=== PATIENT | male | born 1990 | race Caucasian/White ===

== ENCOUNTER 2019-06-21 00:05 | Emergency (ER) | payer SELFPAY ==
[~2019-06-21] VITALS: Ht 170.2 cm; Wt 81.6 kg
--- NOTE | 2019-06-21 00:20 | NUR ---
ED Nurse Note: Pt walked into ED c/o seizure today at 2330, witnessed by his for 3 mins. Stated that he passed out for couple of minutes. No SOB. Not in any distress. As per pt, he is on seizure meds but is non compliant. VSS. at bedside.
--- NOTE | 2019-06-21 00:20 | NUR ---
Note audi in EDM - 06/21/19 at 0026 by VICKY ED Nurse Note: Pt walked into ED c/o seizure today at 2330, witnessed by his for 3 mins. Denies LOC. No SOB. Not in any distress. As per pt, he is on seizure meds but is non compliant. VSS. at bedside.
[2019-06-21 00:22] VITALS: BP 138/80
[2019-06-21] MEDS ORDERED: GABAPENTIN300 MG ORAL (00:22)
[2019-06-21] MEDS ORDERED: TRAZODONE HCL150 MG ORAL (00:22)
[2019-06-21] MEDS ORDERED: ROBAXIN-500MG ORAL (00:22)
[2019-06-21] MEDS ORDERED: QUETIAPINE FUMA25 MG ORAL (00:22)
[2019-06-21] MEDS ORDERED: KEPPRA500 M4 ORAL (00:22)
--- NOTE | 2019-06-21 00:25 | NUR ---
ED Nurse Note: ERMD at bedside.
[2019-06-21] MEDS ORDERED: levETIRAcetam 1,000mg/NS100ml 100 ML IVPB ONE (00:30)
--- NOTE | 2019-06-21 00:30 | Emergency Room Report ---
History of Present Illness General Chief Complaint: Seizure Source: Patient Present Illness HPI Disclaimer: Please note that this report is being documented using DRAGON technology. This can lead to erroneous entry secondary to incorrect interpretation by the dictating instrument. HPI: 28-year-old male presents for evaluation after a seizure. Has a history of seizure disorder and is prescribed Keppra. He recently arrived from [place] and is in a drug rehabilitation program for opiate abuse. Proximally 1 hour ago he had a witnessed 3 to 5-minute period of seizure-like activity. His seizures are usually generalized tonic-clonic seizures however his witnessed him rigid and stiff for approximately 3 minutes. He was not responding to verbal or physical stimuli. The patient has no recollection of these events. Denies urinary incontinence, tongue biting, head injury. Reportedly he was postictal for 2 to 3 minutes and then returned to baseline. He arrives alert and oriented without complaints. Denies headache, vision changes, nausea, vomiting, chest pain, shortness of breath, diarrhea. He has been without his Keppra for 2 days. Last seizure was May 29. PMH: Seizure disorder, opiate abuse PSH: Denies Allergies: Denies Social Hx: Opiate abuse in remission, in a Suboxone program Allergies: Coded Allergies: No Known Allergies (Unverified , 06/21/19) Nursing Documentation-PMH Past Medical History: No History, Except For History Of Psychiatric Problem: Yes - SUBSTANCE ABUSE Hx Seizures: Yes Review of Systems All Other Systems: negative except mentioned in HPI Physical Exam Vital Signs Date Time Temp Pulse Resp B/P (MAP) Pulse Ox O2 Delivery O2 Flow Rate FiO2 06/21/19 00:12 98.1 88 14 138/80 (99) 98 Room Air General: Awake and alert, no acute distress HEENT: NC/AT. EOMI. PERRLA. Visual saha are full. No nystagmus. Facial expressions are symmetrical. No facial droop. Cardiovascular: RRR. S1 and S2 normal. No murmur appreciated Resp: Normal work of breathing. No cough, wheezing or crackles appreciated Abdomen: Abdomen is soft, nondistended. Nontender Skin: Intact. No abrasions, laceration or rash over the exposed skin MSK: Normal tone and bulk. Moving all extremities. No obvious deformity. There is no drift in the upper or lower extremities bilaterally. Neuro: Awake and alert. Mentating appropriately. Facial expression symmetrical. No dysarthria, no ataxia. Sensation to light touch is intact over the upper and lower extremities. The patient has intact speech with good repetition, comprehension. Fund of knowledge is full. No aphasia, no neglect. Medical Decision Making Diagnostic Impression: Primary Impression: Seizure ER Course 28-year-old male presents for evaluation of seizure. He has been without his Keppra for 2 days. Well is most likely due to medication noncompliance this type of seizure was reportedly different than his baseline. Will obtain a CT scan of the head and broad labs. Will load with Keppra. Laboratory Tests Test 06/21/19 00:34 White Blood Count 8.5 K/UL (4.8-10.8) Red Blood Count 4.77 M/UL (4.70-6.10) Hemoglobin 14.7 G/DL (14.2-18.0) Hematocrit 42.5 % (42.0-52.0) Mean Corpuscular Volume 89 FL (80-99) Mean Corpuscular Hemoglobin 30.7 PG (27.0-31.0) Mean Corpuscular Hemoglobin Concent 34.5 G/DL (32.0-36.0) Red Cell Distribution Width 12.0 % (11.6-14.8) Platelet Count 174 K/UL (150-450) Mean Platelet Volume 8.5 FL (6.5-10.1) Neutrophils (%) (Auto) 50.0 % (45.0-75.0) Lymphocytes (%) (Auto) 40.0 % (20.0-45.0) Monocytes (%) (Auto) 7.6 % (1.0-10.0) Eosinophils (%) (Auto) 1.8 % (0.0-3.0) Basophils (%) (Auto) 0.5 % (0.0-2.0) Sodium Level 142 MMOL/L (136-145) Potassium Level 4.0 MMOL/L (3.5-5.1) Chloride Level 103 MMOL/L (98-107) Carbon Dioxide Level 31 MMOL/L (21-32) Anion Gap 8 mmol/L (5-15) Blood Urea Nitrogen 23 mg/dL (7-18) H Creatinine 1.0 MG/DL (0.55-1.30) Estimate Glomerular Filtration Rate > 60 mL/min (>60) Glucose Level 93 MG/DL (74-106) Calcium Level 9.0 MG/DL (8.5-10.1) Total Bilirubin 0.2 MG/DL (0.2-1.0) Aspartate Amino Transferase (AST) 88 U/L (15-37) H Alanine Aminotransferase (ALT) 286 U/L (12-78) H Alkaline Phosphatase 76 U/L (46-116) Total Protein 7.3 G/DL (6.4-8.2) Albumin 3.7 G/DL (3.4-5.0) Globulin 3.6 g/dL Albumin/Globulin Ratio 1.0 (1.0-2.7) Salicylates Level 3.1 ug/mL (2.8-20) Urine Opiates Screen Negative (NEGATIVE) Acetaminophen Level < 2 MCG/ML (10-30) L Urine Barbiturates Screen Negative (NEGATIVE) Phencyclidine (PCP) Screen Negative (NEGATIVE) Urine Amphetamines Screen Negative (NEGATIVE) Urine Benzodiazepines Screen Positive (NEGATIVE) H Urine Cocaine Screen Negative (NEGATIVE) Urine Marijuana (THC) Screen Negative (NEGATIVE) Serum Alcohol < 3 mg/dL EKG Diagnostic Results EKG Time: 00:34 Rate: normal Rhythm: NSR ST Segments: no acute changes Other Impression Sinus rhythm, normal axis, normal intervals, no ST segment changes Rhythm Strip Diag. Results Rhythm Strip Time: 00:34 EP Interpretation: yes Rate: 75 Rhythm: NSR, no PVC's, no ectopy CT/MRI/US Diagnostic Results CT/MRI/US Diagnostic Results : Impression Final Report EXAM: CT Head Without Intravenous Contrast CLINICAL HISTORY: SZ TECHNIQUE: Axial computed tomography images of the head/brain without intravenous contrast. CTDI is 63 mGy and DLP is 1489 mGy-cm. One or more of the following dose reduction techniques were used: automated exposure control, adjustment of the mA and/or kV according to patient size, use of iterative reconstruction technique. COMPARISON: No relevant prior studies available. FINDINGS: Brain: No hemorrhage or mass effect. Ventricles: No hydrocephalus. Bones/joints: Unremarkable. Soft tissues: Unremarkable. Sinuses: Unremarkable. Mastoid air cells: Clear. IMPRESSION: No acute hemorrhage, hydrocephalus, or mass effect. Radiologist: Mati Appiah MD Electronically Signed: 06/21/19 01:49 Phone: Study ready at 01:38 and initial results transmitted at 01:49 Reevaluation Time: 02:00 Last Vital Signs Date Time Temp Pulse Resp B/P (MAP) Pulse Ox O2 Delivery O2 Flow Rate FiO2 06/21/19 00:22 88 14 Room Air 06/21/19 00:22 98.1 138/80 98 Reevaluation Impression Labs and CT are unremarkable. No further seizure activity here. He is awake alert and return to his neurologic baseline as he has been the entire time in the emergency department. We will refill his Keppra. Referred him to multiple clinics in the area to establish himself as a new patient. He will be discharged to follow-up on an outpatient basis with new PMD. Discussed reasons to return to the emergency department. He understands and agrees with treatment plan. Disposition: HOME, SELF-CARE Condition: Stable Scripts Levetiracetam* (LEVETIRACETAM*) 500 Mg Tablet 500 MG ORAL TWICE A DAY for 30 Days, #60 TAB 0 Refills Prov: Markel Morrow MD 06/21/19 Markel Morrow MD Jun 21, 2019 00:30
--- NOTE | 2019-06-21 00:40 | NUR ---
ED Nurse Note: IV line established. Blood and urine specimen collected and sent to lab.
--- NOTE | 2019-06-21 00:47 | NUR ---
ED Nurse Note: Lola (): [phone] Clark (father): [phone]
[2019-06-21 00:49] LABS: BASOPHILS % (AUTO) 0.5 % (0.0-2.0); EOSINOPHILS % (AUTO) 1.8 % (0.0-3.0); HEMATOCRIT 42.5 % (42.0-52.0); HEMOGLOBIN 14.7 G/DL (14.2-18.0); MEAN CORPUSCULAR VOLUME 89 FL (80-99); MONOCYTES % (AUTO) 7.6 % (1.0-10.0); PLATELET COUNT 174 K/UL (150-450); RED BLOOD COUNT 4.77 M/UL (4.70-6.10); WHITE BLOOD COUNT 8.5 K/UL (4.8-10.8)
[2019-06-21 00:57] LABS: ANION GAP 8 mmol/L (5-15); BLOOD UREA NITROGEN 23 mg/dL (7-18); CARBON DIOXIDE 31 MMOL/L (21-32); CHLORIDE 103 MMOL/L (98-107); SODIUM 142 MMOL/L (136-145)
[2019-06-21 01:01] LABS: ALANINE AMINOTRANSFERASE 286 U/L (12-78); ALBUMIN 3.7 G/DL (3.4-5.0); ALKALINE PHOSPHATASE 76 U/L (46-116); ASPARTATE AMINO TRANSFERASE 88 U/L (15-37); BILIRUBIN,TOTAL 0.2 MG/DL (0.2-1.0)
--- NOTE | 2019-06-21 01:18 | NUR ---
ED Nurse Note: Pt was taken for CT. Accompanied by a tech.
--- NOTE | 2019-06-21 01:33 | NUR ---
ED Nurse Note: Pt came back from CT. Not in any distress.
--- NOTE | 2019-06-21 01:50 | Diagnostic Imaging Report ---
EXAM: CT Head Without Intravenous Contrast CLINICAL HISTORY: SZ TECHNIQUE: Axial computed tomography images of the head/brain without intravenous contrast. CTDI is 63 mGy and DLP is 1489 mGy-cm. One or more of the following dose reduction techniques were used: automated exposure control, adjustment of the mA and/or kV according to patient size, use of iterative reconstruction technique. COMPARISON: No relevant prior studies available. FINDINGS: Brain: No hemorrhage or mass effect. Ventricles: No hydrocephalus. Bones/joints: Unremarkable. Soft tissues: Unremarkable. Sinuses: Unremarkable. Mastoid air cells: Clear. IMPRESSION: No acute hemorrhage, hydrocephalus, or mass effect.
[2019-06-21] MEDS ORDERED: LEVETIRACETAM500 MG ORAL (01:59)
[2019-06-21 02:10] VITALS: BP 128/72
--- NOTE | 2019-06-21 02:10 | NUR ---
ED Nurse Note: Pt cleared by ERMD for discharge. DC instructions/prescription was given and explained to pt and verbalized understanding of teachings. All medical deviecs such as ID band and IV line removed. Pt is AAO x4, ambulatory and left with all personal belongings. Accompanied by his .
== END 2019-06-21 02:10 | disposition home or self-care (01) ==
LOC: EMR 01:26
DX: G40.909 Epilepsy, unspecified, not intractable, without status epilepticus (principal)
CPT/HCPCS: 36415; 70450; 80053; 80307; 82962; 85025; 93005; 96374; 99284; G0480; J1953